=== PATIENT | female | born 1985 | race African-American/Black ===

== ENCOUNTER 2017-11-09 04:59 | Inpatient (IN) ==
[2017-11-09] MEDS ORDERED: ONDANSETRON 4 MG/2 ML VIAL IV PRN ×2 (05:10→12:33)
[2017-11-09] MEDS ORDERED: BUTORPHANOL 2 MG/ML VIAL IV PRN (05:10)
[2017-11-09] MEDS ORDERED: LACTATED RINGERS 1,000 ML IV SCH ×3 (05:30→13:00)
[2017-11-09] MEDS ORDERED: OXYTOCIN/LR 20 UNIT/1,000 ML BAG IV SCH (05:30)
[2017-11-09 05:32] LABS: Basophils % 0.2 % (0.0-0.8); Eosinophils % 0.5 % (0.00-10.9); Hematocrit 34.5 VOL% (35.7-47.0); Hemoglobin 11.6 GM/DL (12.0-16.0); Immature Granulocytes % 0.2 %; Immature Granulocytes Absolute 0.01 #; Lymphocytes # 1.3 10*3/uL (1.4-4.0); Lymphocytes % 23.5 % (21.3-54.2); Mean Corpuscular HGB Conc 33.6 GM/DL (32-36); Mean Corpuscular Hemoglobin 32 PG (27-34); Mean Corpuscular Volume 94.3 FL (87-102); Mean Platelet Volume 10.1 FL (9.6-12.0); Monocytes # 0.4 10*3/uL (0.11-0.8); Monocytes % 6.4 % (1.7-12.7); Neutrophils # 3.9 10*3/uL (1.4-7.4); Neutrophils % 69.2 % (38.7-73.9); Platelet Count 128 T/CUMM (130-400); Red Blood Count 3.66 MC/CUMM (3.8-5.5); Red Cell Distribution Width 13.1 % (9.3-17.3); White Blood Count 5.6 T/CUMM (4-12)
[2017-11-09 05:54] LABS: Alanine Aminotransferase 18 U/L (13-56); Albumin 2.6 G/DL (3.4-5.0); Alkaline Phosphatase 117 U/L (45-117); Aspartate Amino Transferase 20 U/L (0-37); Bilirubin,Total < 0.39 MG/DL (0.2-1.0); Blood Urea Nitrogen 8 MG/DL (7-18); Calcium 8.3 MG/DL (8.5-10.1); Glucose 78 MG/DL (74-106); Osmolality,Calculated 266.1 MOS/KG (273-304); Potassium 3.8 MMOL/L (3.5-5.1); Sodium 135 MMOL/L (136-145); Total Protein 7.1 G/DL (6.4-8.3)
[2017-11-09] MEDS ORDERED: LACTATED RINGERS 500 ML IV ONE (08:37)
[2017-11-09] MEDS ORDERED: CITRIC ACID/SODIUM CITRATE 30 ML UDCUP PO ONE (08:37)
[2017-11-09] MEDS ORDERED: ePHEDrine 50 MG/ML AMP IV PRN (08:37)
[2017-11-09] MEDS ORDERED: FAMOTIDINE 20 MG/2 ML VIAL IV ONE (08:37)
[2017-11-09] MEDS ORDERED: LACTATED RINGERS 1,000 ML IV ONE (08:37)
[2017-11-09] MEDS ORDERED: PROMETHAZINE 25 MG/1 ML VIAL IM ONE (08:38)
[2017-11-09] MEDS ORDERED: diphenhydrAMINE 50 MG/1 ML VIAL IV PRN ×2 (08:38)
[2017-11-09] MEDS ORDERED: hydrOXYzine HCL 25 MG/1 ML VIAL IM PRN (08:38)
[2017-11-09] MEDS ORDERED: fentaNYL 2 MCG/ROPIV 0.2% EPID 150 ML EPIDURAL SCH (09:00)
[2017-11-09 10:35] LABS: Apearance,Urine CLEAR (Clear); Bilirubin,Urine Negative (Negative); Blood, Urine Negative (Negative); Glucose,Urine (UA) Negative (Negative); Ketones,Urine Negative (Negative); Nitrite,Urine Negative (Negative); Protein,Urine Negative; RBC,Urine 1 /HPF (0-4); Squamous Epithelial Cell,Urine Occasional /HPF (0-10); Urine Color Straw (Yellow); Urine Specific Gravity 1.005 (1.001-1.035); Urine Urobilinogen < 2.0 EU/DL (0.2-1.0); WBC,Urine 1 /HPF (0-6)
[2017-11-09] MEDS ORDERED: LIDOCAINE 1% 50 ML VIAL ONE (11:29)
[2017-11-09] MEDS ORDERED: miSOPROStol 200 MCG TABLET ONE (11:30)
[2017-11-09] MEDS ORDERED: METHYLERGONOVINE 0.2 MG/1 ML AMP ONE (11:30)
[2017-11-09] MEDS ORDERED: ACETAMINOPHEN 325 MG TABLET PO PRN (12:33)
[2017-11-09] MEDS ORDERED: BISACODYL 10 MG SUPP RECTAL PRN (12:33)
[2017-11-09] MEDS ORDERED: MAGNESIUM HYDROXIDE SUSP 30 ML UDCUP PO PRN (12:33)
[2017-11-09] MEDS ORDERED: OXYTOCIN/LR 20 UNIT/1,000 ML BAG IV ONE (15:51)
[2017-11-09] MEDS: IBUPROFEN 800 MG TABLET PO PRN (17:48)
[2017-11-09] MEDS: DOCUSATE SODIUM 100 MG CAPSULE PO SCH (21:40)
[2017-11-10] MEDS: IBUPROFEN 800 MG TABLET PO PRN ×3 (01:44→18:39)
[2017-11-10 07:18] LABS: Basophils % 0.3 % (0.0-0.8); Eosinophils # 0.1 10*3/uL (0.0-0.87); Hematocrit 33.4 VOL% (35.7-47.0); Hemoglobin 11.6 GM/DL (12.0-16.0); Immature Granulocytes % 0.4 %; Immature Granulocytes Absolute 0.03 #; Lymphocytes # 1.5 10*3/uL (1.4-4.0); Lymphocytes % 22.7 % (21.3-54.2); Mean Corpuscular HGB Conc 34.7 GM/DL (32-36); Mean Corpuscular Hemoglobin 32 PG (27-34); Mean Corpuscular Volume 91.3 FL (87-102); Mean Platelet Volume 10.7 FL (9.6-12.0); Monocytes # 0.5 10*3/uL (0.11-0.8); Monocytes % 7.4 % (1.7-12.7); Neutrophils # 4.6 10*3/uL (1.4-7.4); Neutrophils % 68.2 % (38.7-73.9); Platelet Count 128 T/CUMM (130-400); Red Blood Count 3.66 MC/CUMM (3.8-5.5); Red Cell Distribution Width 13.2 % (9.3-17.3); White Blood Count 6.8 T/CUMM (4-12)
[2017-11-10] MEDS: DOCUSATE SODIUM 100 MG CAPSULE PO SCH ×2 (09:49→20:27)
[2017-11-10] MEDS: MULTIVITAMIN (PRENATAL) TABLET PO SCH (09:49)
[2017-11-10] MEDS ORDERED: WITCH HAZEL PADS 100/JAR TOP PRN (20:15)
[2017-11-10] MEDS ORDERED: HYDROCORTISONE 2.5% RECTAL CREAM 30 GM TUBE TOP PRN (20:15)
[2017-11-11] MEDS: IBUPROFEN 800 MG TABLET PO PRN ×2 (03:11→10:59)
[2017-11-11 07:24] VITALS: BP 130/73
[2017-11-11] MEDS: MULTIVITAMIN (PRENATAL) TABLET PO SCH (09:44)
[2017-11-11] MEDS: DOCUSATE SODIUM 100 MG CAPSULE PO SCH (09:44)
== END 2017-11-11 11:50 | disposition home or self-care (01) | DRG 560 ==
LOC: N.LD 04:59 → N.OB 16:29
PROVIDERS: ADMIT Obstetrics & Gynecology; ATTEND Obstetrics & Gynecology